=== PATIENT | female | born 1980 | race Caucasian/White ===

== ENCOUNTER 2017-10-15 09:28 | Emergency (ER) | payer BC ==
--- NOTE | 2017-10-15 10:20 | ERPHSYRPT ---
- History of Present Illness Time Seen by Provider: 10/15/17 10:17 Source: patient Exam Limitations: no limitations Patient Subjective Stated Complaint: walking outside this am and slipped on yanez with right leg landing on left lower leg. pain to left lower leg and ankle Triage Nursing Assessment: slight swelling and tenderness noted to left ankle. abrasion to left lower leg. no bleeding at this time. good pedal pulse Physician History: walking outside this am and slipped on yanez with right leg landing on left lower leg. pain to left lower leg and ankle Method of Injury: fell Occurred: just prior to arrival Quality: constant Severity of Pain-Max: mild Severity of Pain-Current: mild Lower Extremities Pain: leg: left, ankle: left Modifying Factors: Improves With: cold therapy Associated Symptoms: none, No unable to bear weight, No dizzy, No fainted, No seizure, No snapping sensation, No popping sensation Allergies/Adverse Reactions: No Known Drug Allergies Allergy (Unverified 09/28/14 00:53) Hx Tetanus, Diphtheria Vaccination/Date Given: Yes (2013) Hx Influenza Vaccination/Date Given: No Hx Pneumococcal Vaccination/Date Given: No Immunizations Up to Date: No - Review of Systems Constitutional: No Symptoms Respiratory: No Symptoms Cardiac: No Symptoms Musculoskeletal: Fall Skin: No Symptoms Neurological: No Symptoms - Past Medical History Pertinent Past Medical History: Yes Psycho-Social History: Anxiety - Past Surgical History Past Surgical History: Yes Female Surgical History: Hysterectomy - Social History Smoking Status: Current every day smoker How long have you smoked: 20 Exposure to second hand smoke: No Drug Use: none Patient Lives Alone: No - Female History Hx Now: No - Nursing Vital Signs Nursing Vital Signs: Initial Vital Signs Temperature 97.8 F 10/15/17 10:00 Pulse Rate 79 10/15/17 10:00 Respiratory Rate 16 10/15/17 10:00 Blood Pressure 93/49 10/15/17 10:00 O2 Sat by Pulse Oximetry 99 10/15/17 10:00 Pain Scale Pain Intensity 4 - Physical Exam General Appearance: no apparent distress Eyes, Ears, Nose, Throat Exam: normal ENT inspection Neck Exam: normal inspection Legs Exam: left leg: abrasions, bone tenderness, deformity, joint effusion, limited range of motion, soft tissue tenderness, bilateral leg: non-tender, normal inspection, normal range of motion Knees Exam: left knee: pain, soft tissue tenderness, swelling, bilateral knee: non-tender, normal inspection, normal range of motion Ankle Exam: left ankle: bone tenderness, deformity, joint effusion SpO2: 99 Procedures - Splinting Location of Splint: Left, Ankle, Lower Leg Type of Splint: Orthoglass Long Leg Splint Splint Applied By: ED Nurse Pre-Proc Neuro Vasc Exam: normal Post-Proc Neuro Vasc Exam: neurovascular intact - Radiology Exams Left Lower Leg X-ray Interpretation: Reviewed by me, Discussed w/ radiologist, Displaced Fracture (left lower end of fibula) Left Ankle X-ray Interpretation: Reviewed by me, Discussed w/ radiologist, Displaced Fracture Ordered Tests: Active Orders 24 hr Category Date Time Status ANKLE (3 VIEWS) Stat Exams 10/15/17 10:08 Completed LOWER LEG Stat Exams 10/15/17 10:08 Completed - Progress Progress: improved, pain not gone completely Counseled pt/family regarding: diagnosis, need for follow-up, rad results - Departure Time of Disposition: 11:05 Departure Disposition: Home Clinical Impression: Fracture of tibia, distal Qualifiers: Encounter type: initial encounter Fracture type: closed Fracture morphology: pilon Fracture alignment: displaced Laterality: left Qualified Code(s): S82.872A - Displaced pilon fracture of left tibia, initial encounter for closed fracture Condition: Stable Critical Care Time: Yes Critical Care Time(excluding separately billable procedures): 30-74 minutes Referrals: PAOLA SHULTZ [Primary Care Provider] - Instructions: Ankle Fracture (DC), Tibia Fracture (DC), Fibula Fracture (DC) Additional Instructions: ANTONIETAJOSEP HERNANDEZ was seen on 10/15/17 n the Emergency Room. You have suffered lower end of leg fracture, you need to call your primary care physician for referral to orthopedic surgeon for further care of your fracture. At that time you were treated for an emergent condition, during your visit Laboratory, Radiology and/or other procedures may have been ordered. It is very important that you follow-up with your Primary Care Physician PAOLA SHULTZ within the next 24-48 hours to review your Emergency Room visit and the final results of testing that was ordered. Some test results such as Urine Cultures, Blood Cultures, and other cultures if ordered will not be finalized for 24-48 hours. If you do not have a Primary Care Provider please call the medical records department at [phone] to obtain a copy of your results or you may sign into our patient portal to obtain these results by visiting us @ [email or web address] and completing the following steps: 1. Click on the Patient Portal link 2. Click the Patient Self Enrollment Link to complete the enrollment form and entering your 3. Once the enrollment form is completed you will receive an email with a temporary ID and password at the email address you provided. 4. Next choose a user name and password. Your user name must be at least 4 characters long and your password must be at least 4 characters long. 5. Choose a security question from the list and provide your answer to the question. If you already have signed into the Health Portal you may access your Health Care Information 10/04 by the following steps: 1. Login to our website @ [email or web address] 2. Enter your original user name and password. FAQS The [facility] Health Portal is an online tool that contains your Lab Results, Radiology Reports, Visit History, Discharge Instructions and Health Summary Lab and Radiology Results will not be available for 72 hours on the portal. The Portal is a secure site, passwords are encryted and URLs are re-written so they cannot be copied and pasted. You and authorized family members are the only ones who can access your Portal. Also there is a timeout feature that protects your information if you leave the Portal page open. If you have technical difficulty please use the Contact Us link on the page this will allow you to submit any questions you have regarding the Portal or you may contact the Medical Record Department at [phone]. Prescriptions: Naproxen 375 mg [Naprosyn 375 mg] 375 mg PO Q8H #30 tablet
[2017-10-15 10:58] VITALS: PULSE 76
--- NOTE | 2017-10-15 10:59 | XRAY ---
Indication: Pain following fall. Comparison: None 2 views of the left lower leg interpreted with ankle exam of the same day demonstrates mildly displaced trimalleolar fractures with soft tissue swelling. No other bony, articular, or soft tissue abnormalities.
--- NOTE | 2017-10-15 10:59 | XRAY ---
Indication: Pain following fall. Comparison: None 3 views of the left ankle demonstrates mildly displaced trimalleolar fractures with soft tissue swelling and a tiny plantar heel spur. No other bony, articular, or soft tissue abnormalities.
[2017-10-15 11:31] VITALS: BP 105/64; O2SAT 97
== END 2017-10-15 11:31 | disposition home or self-care (01) ==
LOC: ED 09:28
PROC: 2W3RX1Z Immobilization of Left Lower Leg using Splint (ICD-10-PCS; principal; 2017-10-15)
DX: S82.872A Displaced pilon fracture of left tibia, initial encounter for closed fracture (principal); W00.0XXA Fall on same level due to ice and snow, initial encounter; M79.662 Pain in left lower leg
CPT/HCPCS: 29515; 73590; 73610; 99283

== ENCOUNTER 2019-03-10 18:22 | Emergency (ER) | payer BC ==
[2019-03-10 18:38] VITALS: O2SAT 99
--- NOTE | 2019-03-10 18:39 | ERPHSYRPT ---
- History of Present Illness Source: patient Exam Limitations: no limitations Method of Injury: twisted Occurred: yesterday Quality: constant Severity of Pain-Max: mild Severity of Pain-Current: mild Lower Extremities Pain: ankle: left Modifying Factors: Improves With: cold therapy Associated Symptoms: none Hx Tetanus, Diphtheria Vaccination/Date Given: Yes (2013) Hx Influenza Vaccination/Date Given: No Hx Pneumococcal Vaccination/Date Given: No <JENNY,OLENA - Last Filed: 03/10/19 18:51> <FABIO BRITTON - Last Filed: 03/10/19 19:30> - History of Present Illness Time Seen by Provider: 03/10/19 18:37 Physician History: 38-year-old female without any significant past medical history twisted her left ankle yesterday and started having swelling on that ankle since today morning. She came to the emergency room as she try all [id number] remedy including ice and did not help her swelling at all. (JENNY,OLENA) Allergies/Adverse Reactions: No Known Drug Allergies Allergy (Unverified 09/28/14 00:53) - Review of Systems Constitutional: No Fever, No Chills Eyes: No Symptoms Ears, Nose, & Throat: No Symptoms Respiratory: No Symptoms, No Cough, No Dyspnea Cardiac: No Symptoms, No Chest Pain, No Edema, No Syncope Abdominal/Gastrointestinal: No Symptoms, No Abdominal Pain, No Nausea, No Vomiting, No Diarrhea Genitourinary Symptoms: No Symptoms, No Dysuria Musculoskeletal: Joint Pain, Joint Swelling (left ankle), No Back Pain, No Neck Pain Skin: No Rash Neurological: No Dizziness, No Focal Weakness, No Sensory Changes Psychological: No Symptoms Endocrine: No Symptoms All Other Systems: Reviewed and Negative <JENNY,OLENA - Last Filed: 03/10/19 18:51> - Past Medical History Pertinent Past Medical History: Yes Psycho-Social History: Anxiety - Past Surgical History Past Surgical History: Yes Female Surgical History: Hysterectomy - Social History Smoking Status: Current every day smoker How long have you smoked: 20 Exposure to second hand smoke: No Drug Use: none Patient Lives Alone: No <JENNY,OLENA - Last Filed: 03/10/19 18:51> - Physical Exam General Appearance: no apparent distress Eyes, Ears, Nose, Throat Exam: normal ENT inspection Neck Exam: normal inspection Cardiovascular/Respiratory Exam: chest non-tender Gastrointestinal/Abdominal Exam: non-tender Ankle Exam: left ankle: normal range of motion, soft tissue tenderness <OLENA ALVARADO - Last Filed: 03/10/19 18:51> - Nursing Vital Signs Nursing Vital Signs: Initial Vital Signs Temperature 98.7 F 03/10/19 18:24 Pulse Rate 80 03/10/19 18:24 Respiratory Rate 16 03/10/19 18:24 Blood Pressure 124/82 03/10/19 18:24 O2 Sat by Pulse Oximetry 99 03/10/19 18:24 Pain Scale Pain Intensity [] 4 Pain Intensity 4 - Course Nursing assessment & vital signs reviewed: Yes - Radiology Exams Ankle X-ray Interpretation: Reviewed by me <OLENA ALVARADO - Last Filed: 03/10/19 18:51> Ordered Tests: Active Orders 24 hr Category Date Time Status ANKLE (3 VIEWS) Stat Exams 03/10/19 18:36 Ordered <OLENA ALVARADO - Last Filed: 03/10/19 18:51> - Progress Progress: unchanged Counseled pt/family regarding: diagnosis, need for follow-up, rad results <FABIO BRITTON - Last Filed: 03/10/19 19:30> - Progress Progress Note: 03/10/19 19:23 xray left ankle-no acute fx or dislocation. old healed lateral malleolar area. comparison xray 05/23/18 and 10/15/17 (FABIO BRITTON) <OLENA ALVARADO - Last Filed: 03/10/19 18:51> - Departure Departure Disposition: Home Critical Care Time: No <FABIO BRITTON - Last Filed: 03/10/19 19:30> - Departure Clinical Impression: Left ankle sprain Condition: Stable Referrals: PAOLA SHULTZ [ACTIVE STAFF] - Additional Instructions: ice pack 3 times daily for 3 days. follow up with primary doctor for persistent symptoms and pain control. add ibuprofen for pain Prescriptions: Hydrocodone/APAP 5/325 [Clarks 5/325 mg] 1 each PO Q8H PRN PRN #6 tablet MDD 3 PRN Reason: Pain
[2019-03-10] MEDS ORDERED: NORCO 5/325 MG ONE (19:36)
[2019-03-10] MEDS: NORCO 5/325 MG PO ONE ×2 (19:37→19:38)
[2019-03-10 20:04] VITALS: BP 116/83; PULSE 76
--- NOTE | 2019-03-10 21:03 | XRAY ---
Indication: Pain following twisting injury. Comparison: May 23, 2018. 3 views of the left ankle again demonstrates tiny plantar heel spur and old trimalleolar fracture with interval hardware removal. Mild soft tissue swelling without acute fracture, dislocation, or suspicious bone lesions.
== END 2019-03-10 20:04 | disposition home or self-care (01) ==
LOC: ED 18:22
DX: S93.402A Sprain of unspecified ligament of left ankle, initial encounter (principal); X50.0XXA Overexertion from strenuous movement or load, initial encounter; M25.472 Effusion, left ankle; M25.572 Pain in left ankle and joints of left foot
CPT/HCPCS: 73610; 99283; A9270-GY

== ENCOUNTER 2024-10-05 12:01 | Emergency (ER) | payer BC ==
[2024-10-05 12:12] VITALS: TEMP 96.9
--- NOTE | 2024-10-05 12:47 | ERPHSYRPT ---
- History of Present Illness Time Seen by Provider: 10/05/24 12:30 Source: patient Exam Limitations: no limitations Patient Subjective Stated Complaint: pt reports having a leaky valve and was having some mild chest pain this morning and got short of breath while making he r bed, Dr. Kaufman is her resource development manager Triage Nursing Assessment: Pt brought self to the ER, vitals wnl, rates chest pain as a 3/10 at this time but it was up to a 5 at home, pulses normal, skin n/w/d, denies difficulty breathing at this time, doesn't appear to be in any dis tress Physician History: 43yo f pmhx anxiety, reported valvular regurgitation x 3, presents via private vehicle for evaluation of left sided chest heaviness that she reports started this AM while she was making her bed. Pt reports she became slightly sob during this episode as well, states she sat down and the heaviness mostly resolved. Pt reports the heaviness is still present, denies any pain in the left arm or shoulder, denies jaw or neck pain. Pt reports she has occasional episodes of similar sx but they usually resolve quickly, this one has lasted longer. Timing/Duration: today, hour(s) (3) Activities at Onset: activity Quality: other (heavy) Location: other (left chest) Chest Pain Radiation: no radiation Severity of Pain-Max: mild Severity of Pain-Current: none Modifying Factors: Improves With: exertion, rest Nitro Today/Relief: no nitro taken today Aspirin Treatment Today: 325 mg x 1, provided by ED Associated Symptoms: denies symptoms Allergies/Adverse Reactions: No Known Drug Allergies Allergy (Verified 10/05/24 12:12) Home Medications: Buspirone HCl 10 mg PO TID 10/05/24 [History] Escitalopram Oxalate [Lexapro] 20 mg PO DAILY 10/05/24 [History] Metoprolol Succinate 25 mg Xl* [Toprol-Xl 25MG Tablets] 25 mg PO DAILY 10/05/24 [History] Hx Tetanus, Diphtheria Vaccination/Date Given: Yes (2013) Hx Influenza Vaccination/Date Given: No Hx Pneumococcal Vaccination/Date Given: No Travel Risk - International Travel Have you traveled outside of the country in past 3 weeks: No - Emerging Infectious Disease Are you exhibiting symptoms associated with any current EIDs: No - Review of Systems Constitutional: No Symptoms Respiratory: No Symptoms Cardiac: Chest Pain, No Edema, No Palpitations, No Syncope, No Orthopnea Abdominal/Gastrointestinal: No Symptoms - Past Medical History Pertinent Past Medical History: Yes Cardiac History: Other Psycho-Social History: Anxiety Other Medical History: leaky valve - Past Surgical History Past Surgical History: Yes Musculoskeletal: Orthopedic Surgery Female Surgical History: Hysterectomy Other Surgical History: left ankle - Female History Hx Now: No (hysterectomy) - Social History Smoking Status: Former smoker How long have you smoked: 20 Exposure to second hand smoke: No Drug Use: none Patient Lives Alone: No - Social Determinants of Health Will the patient participate in the screening: Yes Do you worry about a steady place to live?: No Do you have any problems with any of the following?: No known problems In the past 12 months,have you had to go without utilities?: No Transportation Issues: No Has anyone in your support network made you feel unsafe?: No Have you or anyone in your house had to go without enough: No - Nursing Vital Signs Nursing Vital Signs: Initial Vital Signs Temperature 96.9 F 10/05/24 12:06 Pulse Rate 69 10/05/24 12:06 O2 Sat by Pulse Oximetry 100 10/05/24 12:06 Pain Scale Pain Intensity 3 - Physical Exam General Appearance: no apparent distress, alert Neck Exam: normal inspection Respiratory Exam: normal breath sounds, lungs clear, airway intact, No chest tenderness, No respiratory distress, No crackles/rales Cardiovascular Exam: regular rate/rhythm, normal heart sounds, normal peripheral pulses, capillary refill <2 sec Gastrointestinal/Abdomen Exam: soft, No tenderness, No distention Neurologic Exam: alert, oriented x 3, cooperative Skin Exam: normal color SpO2 Interpretation: normal SpO2: 100 O2 Delivery: Room Air - Course EKG Interpreted by Me: RATE (65), Sinus Rhythm, NORMAL AXIS, NORMAL ST-T (not suggestive of acute ischemia) Ordered Tests: Active Orders 24 hr Category Date Time Status EKG-ER Only STAT Care 10/05/24 12:42 Active CHEST 2 VIEWS (PA AND LAT) Stat Exams 10/05/24 12:43 Taken CBC W DIFF Stat Lab 10/05/24 13:00 Completed CMP Stat Lab 10/05/24 13:00 Completed D-DIMER QUANTITATIVE Stat Lab 10/05/24 13:00 Completed NT PRO BNPII Stat Lab 10/05/24 13:00 Completed TROPONIN Q4H Lab 10/05/24 13:00 Completed TROPONIN Q4H Lab 10/05/24 16:45 Ordered TROPONIN Q4H Lab 10/05/24 20:45 Ordered Medication Summary Discontinued Medications Generic Name Dose Route Start Last Admin Trade Name Alda PRN Reason Stop Dose Admin Aspirin 324 mg 10/05/24 12:42 10/05/24 12:54 Aspirin 81 Mg Tab.Chew PO 10/05/24 12:43 324 mg STAT ONE Administration Aspirin Confirm 10/05/24 12:53 Aspirin 81 Mg Tab.Chew Administered 10/05/24 12:54 Dose 324 mg .ROUTE [email or web address] Lab/Rad Data: Laboratory Result Diagrams 10/05/24 13:00 10/05/24 13:00 Laboratory Results 10/05/24 10/05/24 10/05/24 Range/Units 13:00 13:00 13:00 WBC (3.98-10.04) x10^3/uL RBC (3.93-5.22) x10^6/uL Hgb (11.2-15.7) g/dL Hct (34.1-44.9) % MCV (79.4-94.8) fL MCH (25.6-32.2) pg MCHC (32.2-35.5) g/dL RDW (11.7-14.4) % Plt Count (182-369) x10^3/uL MPV (9.4-12.3) fL Gran % (34.0-71.1) % Immature Gran % (Auto) (0.001-0.429) % Nucleat RBC Rel Count (0.00-0.2) % Eos # (Auto) (0.04-0.36) x10^3/uL Immature Gran # (Auto) (0.001-0.031) x10^3u/L Absolute Lymphs (auto) (1.18-3.74) x10^3/uL Absolute Monos (auto) (0.24-0.86) x10^3/uL Absolute Nucleated RBC (0.00-0.012) x10^3u/L Lymphocytes % (19.3-51.7) % Monocytes % (4.7-12.5) % Eosinophils % (0.7-5.8) % Basophils % (0.1-1.2) % Absolute Granulocytes (1.56-6.13) x10^3/uL Basophils # (0.01-0.08) x10^3/uL D-Dimer 0.21 (0.0-0.50) mg/L Sodium 136 (135-145) mmol/L Potassium 4.5 (3.5-5.1) mmol/L Chloride 106 (98-107) mmol/L Carbon Dioxide 24 (22-30) mmol/L Anion Gap 10.2 (5-15) MEQ/L BUN 15 (7-17) mg/dL Creatinine 0.84 (0.52-1.04) mg/dL Estimated GFR 87.3 ML/MIN Glucose 90 (74-106) mg/dL Calcium 9.5 (8.4-10.2) mg/dL Total Bilirubin 0.60 (0.2-1.3) mg/dL AST 25 (14-36) U/L ALT 13 (0-35) U/L Alkaline Phosphatase 60 (38-126) U/L Troponin I < 0.012 (0.000-0.033) ng/mL NT-Pro-B Natriuret Pep 77.0 (<300) pg/mL Serum Total Protein 6.8 (6.3-8.2) g/dL Albumin 4.3 (3.5-5.0) g/dL 10/05/24 Range/Units 13:00 WBC 5.3 (3.98-10.04) x10^3/uL RBC 4.34 (3.93-5.22) x10^6/uL Hgb 12.9 (11.2-15.7) g/dL Hct 38.9 (34.1-44.9) % MCV 89.6 (79.4-94.8) fL MCH 29.7 (25.6-32.2) pg MCHC 33.2 (32.2-35.5) g/dL RDW 13.2 (11.7-14.4) % Plt Count 305 (182-369) x10^3/uL MPV 9.2 L (9.4-12.3) fL Gran % 62.2 (34.0-71.1) % Immature Gran % (Auto) 0.2 (0.001-0.429) % Nucleat RBC Rel Count 0.0 (0.00-0.2) % Eos # (Auto) 0.07 (0.04-0.36) x10^3/uL Immature Gran # (Auto) 0.01 (0.001-0.031) x10^3u/L Absolute Lymphs (auto) 1.27 (1.18-3.74) x10^3/uL Absolute Monos (auto) 0.54 (0.24-0.86) x10^3/uL Absolute Nucleated RBC 0.00 (0.00-0.012) x10^3u/L Lymphocytes % 24.0 (19.3-51.7) % Monocytes % 10.2 (4.7-12.5) % Eosinophils % 1.3 (0.7-5.8) % Basophils % 2.1 H (0.1-1.2) % Absolute Granulocytes 3.30 (1.56-6.13) x10^3/uL Basophils # 0.11 H (0.01-0.08) x10^3/uL D-Dimer (0.0-0.50) mg/L Sodium (135-145) mmol/L Potassium (3.5-5.1) mmol/L Chloride (98-107) mmol/L Carbon Dioxide (22-30) mmol/L Anion Gap (5-15) MEQ/L BUN (7-17) mg/dL Creatinine (0.52-1.04) mg/dL Estimated GFR ML/MIN Glucose (74-106) mg/dL Calcium (8.4-10.2) mg/dL Total Bilirubin (0.2-1.3) mg/dL AST (14-36) U/L ALT (0-35) U/L Alkaline Phosphatase (38-126) U/L Troponin I (0.000-0.033) ng/mL NT-Pro-B Natriuret Pep (<300) pg/mL Serum Total Protein (6.3-8.2) g/dL Albumin (3.5-5.0) g/dL - Progress Progress: improved Air Movement: good Progress Note: 10/05/24 15:13 pt asymptomatic on re-exam lab w/u has been unremarkable, troponins and bnp wnl, ekg normal sinus w/o suggestion of ischemia cxr negative for acute process pt has follow up w/ resource development manager scheduled for next month low suspicion for acute cardiac or intrathoracic pathology heart score 1 plan for discharge home w/ pcp follow up w/in 7d (Arian) continue to monitor for return of symptoms including chest pain and pressure keep upcoming f/u w/ cardiology return to ED if: chest heaviness returns, develop pain that radiates into the back/down the left arm/into the left jaw, develop shortness of breath Blood Culture(s) Obtained: No Antibiotics given: No Counseled pt/family regarding: lab results, diagnosis, need for follow-up, rad results Medical Desision Making - Diagnostic Testing Diagnostic test were ordered, analyzed, and reviewed by me: Yes Radiological Interpretation: Interpreted by me, Reviewed by me - Risk of complications Minimal Risk: Minimal risk of morbidity - Departure Departure Disposition: Home Clinical Impression: Chest heaviness Condition: Stable Critical Care Time: No Referrals: RAYRAY LOW NP [Primary Care Provider] - Follow up/PCP as directed Additional Instructions: plan for discharge home w/ pcp follow up w/in 7d (Arian) continue to monitor for return of symptoms including chest pain and pressure keep upcoming f/u w/ cardiology return to ED if: chest heaviness returns, develop pain that radiates into the back/down the left arm/into the left jaw, develop shortness of breath
[2024-10-05] MEDS ORDERED: BABY ASPIRIN 81 MG CHEW ONE (12:53)
[2024-10-05] MEDS: BABY ASPIRIN 81 MG CHEW PO ONE (12:54)
[2024-10-05 13:04] LABS: BASOPHIL % 2.1 % (0.1-1.2); Basophil (Absolute #) 0.11 x10^3/uL (0.01-0.08); Eosinophil % 1.3 % (0.7-5.8); Eosinophil (Absolute #) 0.07 x10^3/uL (0.04-0.36); Hematocrit 38.9 % (34.1-44.9); Hemoglobin 12.9 g/dL (11.2-15.7); IMMATURE GRAN # 0.01 x10^3u/L (0.001-0.031); IMMATURE GRAN % 0.2 % (0.001-0.429); Lymphocyte (Absolute #) 1.27 x10^3/uL (1.18-3.74); Mean Cell Volume 89.6 fL (79.4-94.8); Mean Corpuscular Hemoglobin 29.7 pg (25.6-32.2); Mean Corpuscular Hgb Concent. 33.2 g/dL (32.2-35.5); Mean Platelet Volume 9.2 fL (9.4-12.3); Monocyte (Absolute #) 0.54 x10^3/uL (0.24-0.86); Monocytes % 10.2 % (4.7-12.5); Neutrophil % 62.2 % (34.0-71.1); Platelet Count 305 x10^3/uL (182-369); Red Blood Count 4.34 x10^6/uL (3.93-5.22); Red Cell Distribution Width 13.2 % (11.7-14.4); White Blood Count 5.3 x10^3/uL (3.98-10.04)
[2024-10-05 13:25] LABS: ALBUMIN 4.3 g/dL (3.5-5.0); ANION GAP 10.2 MEQ/L (5-15); BILIRUBIN,TOTAL 0.6 mg/dL (0.2-1.3); Calcium 9.5 mg/dL (8.4-10.2); Creatinine 1 0.84 mg/dL (0.52-1.04); EST GLOMERULAR FILTRATION RATE 87.3 ML/MIN; Potassium 4.5 mmol/L (3.5-5.1); Total Protein 6.8 g/dL (6.3-8.2)
[2024-10-05 15:07] VITALS: BP 95/67; PULSE 54; RESP 13
[2024-10-05 15:19] VITALS: O2SAT 100
--- NOTE | 2024-10-05 20:15 | XRAY ---
Indication: Chest heaviness. Comparison: December 17, 2021 PA/lateral chest again hyperinflated and clear with incidental bilateral nipple shadows. Heart not enlarged. Bony thorax intact. No new/acute findings.
== END 2024-10-05 15:40 | disposition home or self-care (01) ==
LOC: ED 12:01
DX: R07.9 Chest pain, unspecified (principal); R06.02 Shortness of breath; Z79.899 Other long term (current) drug therapy
CPT/HCPCS: 36415; 71046; 80053; 83880; 84484; 85025; 85379; 93005; 99284; 99285; A9270-GY